=== PATIENT | female | born 1990 | race African-American/Black ===

== ENCOUNTER 2019-01-07 15:48 | Emergency (ER) | payer OTHER ==
[~2019-01-07] VITALS: Ht 170.2 cm; Wt 98.9 kg
[~2019-01-07 15:48] MED LIST: IBUP-1007 PO; ORPH100T PO; [UNRECOGNIZED DRUG - CODE] PO
[2019-01-07] MEDS ORDERED: ONDANSETRON PF 4 MG/2 ML VIAL. IV ONE (16:00)
[2019-01-07] MEDS ORDERED: IV NORMAL SALINE 1000ML BAG 1,000 ML IV ONE (16:00)
--- NOTE | 2019-01-07 16:05 | PHYS DOC ---
Past Medical History Past Medical History: Hypertension Past Surgical History: Other Additional Past Surgical Histo: TUBAL SURGERY Alcohol Use: Rarely Drug Use: None Adult General Chief Complaint Chief Complaint: VOMITING IN HPI HPI Patient is a 28 year old female G5 Para 2, miscarriage 2 , currently 16 weeks who presents with nausea, vomiting and mild abdominal pain that began an hour ago. Patient denies any fever. Denies any vaginal bleeding. She states she's been following up with Dr. Page her [employer]. Review of Systems Review of Systems Constitutional: Denies fever or chills [] Eyes: Denies change in visual acuity, redness, or eye pain [] HENT: Denies nasal congestion or sore throat [] Respiratory: Denies cough or shortness of breath [] Cardiovascular: No additional information not addressed in HPI [] GI: Reports abdominal pain in with nausea and vomiting, denies bloody stools or diarrhea [] : Denies dysuria or hematuria [] Musculoskeletal: Denies back pain or joint pain [] Integument: Denies rash or skin lesions [] Neurologic: Denies headache, focal weakness or sensory changes [] All other systems were reviewed and found to be within normal limits, except as documented in this note. Current Medications Current Medications Current Medications Medications (Trade) Dose Ordered Sig/Juliane Start Time Stop Time Status Last Admin Dose Admin Ondansetron HCl (Zofran) 4 mg 1X ONCE 01/07/19 16:00 01/07/19 16:01 DC 01/07/19 16:00 4 MG Prochlorperazine Edisylate (Compazine) 10 mg 1X ONCE 01/07/19 17:45 01/07/19 17:46 DC 01/07/19 17:50 10 MG Sodium Chloride 1,000 ml @ 1,000 mls/hr 1X ONCE 01/07/19 16:00 01/07/19 16:59 DC 01/07/19 16:17 1,000 MLS/HR Allergies Allergies Allergies Coded Allergies Type Severity Reaction Last Updated Verified pineapple Allergy Intermediate HIVES 12/10/15 Yes Physical Exam Physical Exam Constitutional: Well developed, well nourished, no acute distress, non-toxic appearance. [] HENT: Normocephalic, atraumatic, bilateral external ears normal, oropharynx moist, no oral exudates, nose normal. [] Eyes: PERRLA, EOMI, conjunctiva normal, no discharge. [] Neck: Normal range of motion, no tenderness, supple, no stridor. [] Cardiovascular:Heart rate regular rhythm, no murmur [] Lungs & Thorax: Bilateral breath sounds clear to auscultation [] Abdomen: Gravid abdomen. Patient is actively vomiting on arrival to the ED. Bowel sounds normal, soft, no tenderness, no masses, no pulsatile masses. [] Skin: Warm, dry, no erythema, no rash. [] Back: No tenderness, no CVA tenderness. [] Extremities: No tenderness, no cyanosis, no clubbing, ROM intact, no edema. [] Neurologic: Alert and oriented X 3, normal motor function, normal sensory function, no focal deficits noted. [] Psychologic: Affect normal, judgement normal, mood normal. [] Current Patient Data Vital Signs Vital Signs Date Time Temp Pulse Resp B/P (MAP) Pulse Ox O2 Delivery O2 Flow Rate FiO2 01/07/19 15:48 98.1 80 18 152/95 (114) 100 Room Air 98.1 Lab Values Laboratory Tests Test 01/07/19 16:20 01/07/19 17:05 01/07/19 17:10 White Blood Count 8.1 x10^3/uL (4.0-11.0) Red Blood Count 3.65 x10^6/uL (3.50-5.40) Hemoglobin 11.3 g/dL (12.0-15.5) L Hematocrit 32.7 % (36.0-47.0) L Mean Corpuscular Volume 90 fL (79-100) Mean Corpuscular Hemoglobin 31 pg (25-35) Mean Corpuscular Hemoglobin Concent 35 g/dL (31-37) Red Cell Distribution Width 16.0 % (11.5-14.5) H Platelet Count 302 x10^3/uL (140-400) Neutrophils (%) (Auto) 77 % (31-73) H Lymphocytes (%) (Auto) 17 % (24-48) L Monocytes (%) (Auto) 5 % (0-9) Eosinophils (%) (Auto) 1 % (0-3) Basophils (%) (Auto) 0 % (0-3) Neutrophils # (Auto) 6.3 x10^3uL (1.8-7.7) Lymphocytes # (Auto) 1.4 x10^3/uL (1.0-4.8) Monocytes # (Auto) 0.4 x10^3/uL (0.0-1.1) Eosinophils # (Auto) 0.1 x10^3/uL (0.0-0.7) Basophils # (Auto) 0.0 x10^3/uL (0.0-0.2) Sodium Level 136 mmol/L (136-145) Potassium Level 3.7 mmol/L (3.5-5.1) Chloride Level 102 mmol/L (98-107) Carbon Dioxide Level 22 mmol/L (21-32) Anion Gap 12 (6-14) Blood Urea Nitrogen 7 mg/dL (7-20) Creatinine 0.6 mg/dL (0.6-1.0) Estimated GFR (Cockcroft-Gault) 145.1 BUN/Creatinine Ratio 12 (6-20) Glucose Level 89 mg/dL (70-99) Calcium Level 9.0 mg/dL (8.5-10.1) Total Bilirubin 0.4 mg/dL (0.2-1.0) Aspartate Amino Transferase (AST) 15 U/L (15-37) Alanine Aminotransferase (ALT) 21 U/L (14-59) Alkaline Phosphatase 42 U/L (46-116) L Total Protein 7.6 g/dL (6.4-8.2) Albumin 3.1 g/dL (3.4-5.0) L Albumin/Globulin Ratio 0.7 (1.0-1.7) L Ethyl Alcohol Level < 10 mg/dL (0-10) Urine Collection Type Unknown Urine Color Yellow Urine Clarity Cloudy Urine pH 7.0 Urine Specific [place] 1.015 Urine Protein Negative mg/dL (NEG-TRACE) Urine Glucose (UA) Negative mg/dL (NEG) Urine Ketones (Stick) 40 mg/dL (NEG) Urine Blood Negative (NEG) Urine Nitrite Negative (NEG) Urine Bilirubin Negative (NEG) Urine Urobilinogen Dipstick 0.2 mg/dL (0.2 mg/dL) Urine Leukocyte Esterase Trace (NEG) Urine RBC 1-2 /HPF (0-2) Urine WBC 1-4 /HPF (0-4) Urine Squamous Epithelial Cells Many /LPF Urine Bacteria Few /HPF (0-FEW) Urine Mucus Marked /LPF Urine Opiates Screen Neg (NEG) Urine Methadone Screen Neg (NEG) Urine Barbiturates Neg (NEG) Urine Phencyclidine Screen Neg (NEG) Urine Amphetamine/Methamphetamine Neg (NEG) Urine Benzodiazepines Screen Neg (NEG) Urine Cocaine Screen Neg (NEG) Urine Cannabinoids Screen Pos (NEG) Urine Ethyl Alcohol Neg (NEG) POC Urine HCG, Qualitative Hcg positive (Negative) Laboratory Tests 01/07/19 16:20 Laboratory Tests 01/07/19 16:20 EKG EKG [] Radiology/Procedures Radiology/Procedures []PROCEDURE: PREG MORE THAN OR EQ TO 14 WKS Examination: Obstetric ultrasound limited HISTORY: History of pain in COMPARISON: None available. FINDINGS: The cervical length measures 4.5 cm. heart rate is 149 bpm. Given LMP is to 08/25/2018 Clinical age is 17 weeks and 4 days with estimated delivery by LMP 06/13/2019. Ultrasound age is 18 weeks and 1 day with the estimated date of delivery by ultrasound 06/09/2019. Estimated weight 212 g. Cephalic index 74.3. Head circumference to abdominal circumference ratio 1.2. Femur length to biparietal diameter 61.5. Femur length to head circumference 16. Femur length to abdominal circumference 20.7. Biparietal diameter measures 4.1 cm corresponding to 18 weeks and 3 days. Head circumference measures 15.7 cm corresponding to 18 weeks and 4 days. Abdominal circumference measures 12.1 cm corresponding 17 weeks and 6 days. Femur length measures 2.5 cm corresponding to 17 weeks and 4 days. IMPRESSION: Single living intrauterine with heart rate of 149 bpm. Electronically signed by: Adam Wilkinson MD (01/07/2019 4:49 PM) [facility] DICTATED and SIGNED BY: ADAM WILKINSON MD DATE: 01/07/19 8676 Course & Med Decision Making Course & Med Decision Making Pertinent Labs and Imaging studies reviewed. (See chart for details) This is a 28-year-old female patient 5 para 2 with 2 miscarriages presents to the ED today complaining of nausea and vomiting in . Patient is also complaining of abdominal pain. She is currently 16 weeks . CBC, CMP-no acute findings, urine analysis appears contaminated though no active infection Patient was given a liter of fluid, Zofran, Compazine. OB ultrasound-Single living intrauterine with heart rate of 149 bpm. Currently resting well. D/c to home f/u with Dr. Page as soon as she can. Dragon Disclaimer Guzmanon Disclaimer This electronic medical record was generated, in whole or in part, using a voice recognition dictation system. Departure Departure Impression: Primary Impression: Vomiting during Disposition: HOME, SELF-CARE Condition: STABLE Referrals: NO PCP (PCP) MICHAEL PAGE MD follow up in 1-3 days Patient Instructions: Diet - Hyperemesis Gravidarum, Hyperemesis Gravidarum Additional Instructions: You were evaluated in the emergency room for nausea and vomiting in . Please take the prescribed medication as needed for nausea vomiting. Push fluids. You can take Tylenol as needed for pain. Please contact Dr. Page tomorrow and set up a follow-up appointment. Scripts Ondansetron (ONDANSETRON ODT) 4 Mg Tab.rapdis 1 TAB PO PRN Q6-8HRS, #20 TAB Prov: CAITLIN KANG APRN 01/07/19 Prochlorperazine Maleate (Compazine) 10 Mg Tablet 10 MG PO TID, #20 TAB Prov: CAITLIN KANG APRN 01/07/19 CAITLIN KANG APRN Jan 07, 2019 16:04
[2019-01-07 16:29] LABS: BASO % 0 % (0-3); EOS # 0.1 x10^3/uL (0.0-0.7); EOS % 1 % (0-3); HEMATOCRIT 32.7 % (36.0-47.0); HEMOGLOBIN 11.3 g/dL (12.0-15.5); LYMPH # 1.4 x10^3/uL (1.0-4.8); LYMPH % 17 % (24-48); MEAN CORPUSCULAR HEMOGLOBIN 31 pg (25-35); MEAN CORPUSCULAR HGB CONC 35 g/dL (31-37); MEAN CORPUSCULAR VOLUME 90 fL (79-100); MONO # 0.4 x10^3/uL (0.0-1.1); MONO % 5 % (0-9); NEUT # 6.3 x10^3uL (1.8-7.7); NEUT % 77 % (31-73); PLATELET COUNT 302 x10^3/uL (140-400); RED BLOOD COUNT 3.65 x10^6/uL (3.50-5.40); WHITE BLOOD COUNT 8.1 x10^3/uL (4.0-11.0)
[2019-01-07 16:44] LABS: CREATININE 0.6 mg/dL (0.6-1.0); GFR 145.1; POTASSIUM 3.7 mmol/L (3.5-5.1)
[2019-01-07 16:50] LABS: ALBUMIN 3.1 g/dL (3.4-5.0); ALBUMIN/GLOBULIN RATIO 0.7 (1.0-1.7); TOTAL BILIRUBIN 0.4 mg/dL (0.2-1.0); TOTAL PROTEIN 7.6 g/dL (6.4-8.2)
--- NOTE | 2019-01-07 16:52 | RAD ---
Examination: Obstetric ultrasound limited HISTORY: History of pain in COMPARISON: None available. FINDINGS: The cervical length measures 4.5 cm. heart rate is 149 bpm. Given LMP is to 08/25/2018 Clinical age is 17 weeks and 4 days with estimated delivery by LMP 06/13/2019. Ultrasound age is 18 weeks and 1 day with the estimated date of delivery by ultrasound 06/09/2019. Estimated weight 212 g. Cephalic index 74.3. Head circumference to abdominal circumference ratio 1.2. Femur length to biparietal diameter 61.5. Femur length to head circumference 16. Femur length to abdominal circumference 20.7. Biparietal diameter measures 4.1 cm corresponding to 18 weeks and 3 days. Head circumference measures 15.7 cm corresponding to 18 weeks and 4 days. Abdominal circumference measures 12.1 cm corresponding 17 weeks and 6 days. Femur length measures 2.5 cm corresponding to 17 weeks and 4 days. IMPRESSION: Single living intrauterine with heart rate of 149 bpm. Electronically signed by: Adam Wilkinson MD (01/07/2019 4:49 PM) [facility]
[2019-01-07 17:16] LABS: BILIRUBIN,URINE NEGATIVE (NEG); CLARITY,URINE CLOUDY; COLOR,URINE YELLOW; NITRITE,URINE NEGATIVE (NEG); PROTEIN,URINE NEGATIVE (NEG-TRACE); UROBILINOGEN,URINE 0.2 mg/dL (0.2 mg/dL)
[2019-01-07 17:26] LABS: BARBITURATES NEG (NEG); BENZODIAZEPINES NEG (NEG); CANNABINOIDS POS (NEG); COCAINE NEG (NEG); METHADONE NEG (NEG); OPIATES NEG (NEG); PHENCYCLIDINE NEG (NEG)
[2019-01-07 17:27] LABS: AMPHETAMINE/METHAMPHETAMINE NEG (NEG)
[2019-01-07 17:32] LABS: BACTERIA,URINE FEW /HPF (0-FEW); SQUAMOUS EPITHELIAL CELL,UR MANY /LPF
[2019-01-07] MEDS ORDERED: PROCHLORPERAZINE 10 MG/2 ML VIAL. IV ONE (17:45)
[2019-01-07] MEDS ORDERED: ONDA4TAB12 PO (18:01)
[2019-01-07] MEDS ORDERED: PROC10TA57 PO (18:01)
[2019-01-07 18:10] VITALS: BP 145/87
== END 2019-01-07 18:15 | disposition home or self-care (01) ==
LOC: ER 15:48
DX: O21.9 Vomiting of pregnancy, unspecified (principal); R10.9 Unspecified abdominal pain; O16.2 Unspecified maternal hypertension, second trimester; Z3A.16 16 weeks gestation of pregnancy; Z91.018 Allergy to other foods
CPT/HCPCS: 36415; 76805; 80053; 80307; 81001; 81025; 85025; 87086; 96361; 96374; 96375; 99285; G0480; J0780; J2405; J7030

== ENCOUNTER 2019-04-25 15:25 | Observation (INO) | payer OTHER ==
[~2019-04-25 15:25] MED LIST changes: +ONDA4TAB12 PO; +PROC10TA57 PO
[2019-04-25 16:33] LABS: BILIRUBIN,URINE NEGATIVE (NEG); CLARITY,URINE CLEAR; COLOR,URINE YELLOW; NITRITE,URINE NEGATIVE (NEG); PH,URINE 6.5; PROTEIN,URINE NEGATIVE (NEG-TRACE); UROBILINOGEN,URINE 0.2 mg/dL (0.2 mg/dL)
[2019-04-25 16:56] LABS: SQUAMOUS EPITHELIAL CELL,UR MANY /LPF
[2019-04-25 16:57] LABS: BACTERIA,URINE FEW /HPF (0-FEW)
[2019-04-25] MEDS ORDERED: hydrOXYzine 25 MG TABLET PO PRN (17:15)
[2019-06-18] MEDS ORDERED: NAPR-514 PO (12:22)
[2019-06-18] MEDS ORDERED: HYDR-3164 PO (12:22)
== END 2019-04-25 18:40 | disposition home or self-care (01) ==
LOC: 3 SO LND 15:25
PROVIDERS: ADMIT Specialist; ATTEND Specialist
DX: O26.853 Spotting complicating pregnancy, third trimester (principal); O99.89 Other specified diseases and conditions complicating pregnancy, childbirth and the puerperium; M54.9 Dorsalgia, unspecified; O26.893 Other specified pregnancy related conditions, third trimester; R10.9 Unspecified abdominal pain; Z3A.32 32 weeks gestation of pregnancy
CPT/HCPCS: 81001; G0378; G0379

== ENCOUNTER 2019-05-23 12:28 | Observation (INO) | payer OTHER ==
[2019-05-23] MEDS ORDERED: IV RINGERS,LACTATED 1000ML 1,000 ML IV SCH (13:20)
[2019-05-23 14:00] LABS: BASO % 1 % (0-3); EOS # 0.1 x10^3/uL (0.0-0.7); EOS % 1 % (0-3); HEMATOCRIT 32.6 % (36.0-47.0); HEMOGLOBIN 11.1 g/dL (12.0-15.5); LYMPH # 1.3 x10^3/uL (1.0-4.8); LYMPH % 23 % (24-48); MEAN CORPUSCULAR HEMOGLOBIN 31 pg (25-35); MEAN CORPUSCULAR HGB CONC 34 g/dL (31-37); MEAN CORPUSCULAR VOLUME 92 fL (79-100); MONO # 0.4 x10^3/uL (0.0-1.1); MONO % 7 % (0-9); NEUT % 69 % (31-73); PLATELET COUNT 251 x10^3/uL (140-400); RED BLOOD COUNT 3.56 x10^6/uL (3.50-5.40); RED CELL DISTRIBUTION WIDTH 15.1 % (11.5-14.5); WHITE BLOOD COUNT 5.8 x10^3/uL (4.0-11.0)
[2019-05-23 14:14] LABS: CALCIUM 8.5 mg/dL (8.5-10.1); CREATININE 0.5 mg/dL (0.6-1.0); GFR 177.8
[2019-05-23 14:23] LABS: ALBUMIN 2.7 g/dL (3.4-5.0); ALBUMIN/GLOBULIN RATIO 0.7 (1.0-1.7); TOTAL BILIRUBIN 0.3 mg/dL (0.2-1.0); TOTAL PROTEIN 6.4 g/dL (6.4-8.2); URIC ACID 2.7 mg/dL (2.6-6.0)
[2019-05-23 14:23] LABS: BILIRUBIN,URINE NEGATIVE (NEG); CLARITY,URINE CLEAR; COLOR,URINE YELLOW; NITRITE,URINE NEGATIVE (NEG); PROTEIN,URINE NEGATIVE (NEG-TRACE); UROBILINOGEN,URINE 0.2 mg/dL (0.2 mg/dL)
[2019-05-23 14:24] LABS: CREATININE,RANDOM URINE 64.7 mg/dL (Not Establ.)
[2019-05-23 14:42] LABS: BACTERIA,URINE 0 /HPF (0-FEW); RBC,URINE 0 /HPF (0-2); SQUAMOUS EPITHELIAL CELL,UR FEW /LPF; WBC,URINE 0 /HPF (0-4)
== END 2019-05-23 15:04 | disposition home or self-care (01) ==
LOC: 3 SO LND 12:28
PROVIDERS: ADMIT Specialist; ATTEND Specialist
DX: O62.9 Abnormality of forces of labor, unspecified (principal); Z3A.36 36 weeks gestation of pregnancy
CPT/HCPCS: 36415; 80053; 81001; 82570; 84156; 84550; 85025; G0378; G0379

== ENCOUNTER 2019-06-04 12:01 | Observation (INO) | payer OTHER ==
[2019-06-04] MEDS ORDERED: IV RINGERS,LACTATED 1000ML 1,000 ML IV SCH (13:34)
[2019-06-04 14:09] LABS: BASO # 0.1 x10^3/uL (0.0-0.2); BASO % 1 % (0-3); EOS % 1 % (0-3); HEMATOCRIT 32.9 % (36.0-47.0); HEMOGLOBIN 11.3 g/dL (12.0-15.5); LYMPH # 1.4 x10^3/uL (1.0-4.8); LYMPH % 23 % (24-48); MEAN CORPUSCULAR HEMOGLOBIN 32 pg (25-35); MEAN CORPUSCULAR HGB CONC 34 g/dL (31-37); MEAN CORPUSCULAR VOLUME 92 fL (79-100); MONO # 0.3 x10^3/uL (0.0-1.1); MONO % 5 % (0-9); NEUT # 4.3 x10^3/uL (1.8-7.7); NEUT % 71 % (31-73); PLATELET COUNT 248 x10^3/uL (140-400); RED BLOOD COUNT 3.58 x10^6/uL (3.50-5.40); WHITE BLOOD COUNT 6.1 x10^3/uL (4.0-11.0)
[2019-06-04 14:25] LABS: ALBUMIN 2.6 g/dL (3.4-5.0); ALBUMIN/GLOBULIN RATIO 0.6 (1.0-1.7); CALCIUM 8.4 mg/dL (8.5-10.1); CREATININE 0.6 mg/dL (0.6-1.0); POTASSIUM 3.4 mmol/L (3.5-5.1); TOTAL BILIRUBIN 0.4 mg/dL (0.2-1.0)
[2019-06-04 14:42] LABS: BILIRUBIN,URINE NEGATIVE (NEG); CLARITY,URINE CLOUDY; COLOR,URINE YELLOW; NITRITE,URINE NEGATIVE (NEG); PROTEIN,URINE NEGATIVE (NEG-TRACE)
[2019-06-04 15:01] LABS: SQUAMOUS EPITHELIAL CELL,UR MOD /LPF
[2019-06-04 15:02] LABS: AMORPHOUS SEDIMENT,UR PRESENT /HPF; BACTERIA,URINE 0 /HPF (0-FEW)
[2019-06-04 17:47] LABS: CREATININE,RANDOM URINE 245.2 mg/dL (Not Establ.)
== END 2019-06-04 15:55 | disposition home or self-care (01) ==
LOC: 3 SO LND 12:01
PROVIDERS: ADMIT Specialist; ATTEND Specialist
DX: O26.893 Other specified pregnancy related conditions, third trimester (principal); R03.0 Elevated blood-pressure reading, without diagnosis of hypertension; Z3A.37 37 weeks gestation of pregnancy
CPT/HCPCS: 36415; 80053; 81001; 82570; 83615; 84156; 84550; 85025; 87086; G0378; G0379